=== PATIENT | male | born 1990 | race Asian ===

== ENCOUNTER 2017-07-27 09:43 | Emergency (ER) | payer OTHER | END 2017-07-27 10:28 | disposition home or self-care (01) | LOC: FTE 09:43 | DX: R10.13 Epigastric pain (principal) | CPT/HCPCS: 99282; Z7502 ==

== ENCOUNTER 2017-08-16 05:47 | Day surgery (SDC) | payer OTHER ==
[2017-08-16] MEDS ORDERED: FENTAnyl 50 MCG/ML VIAL (07:49)
[2017-08-16] MEDS ORDERED: MIDAZOLAM 1 MG/ML 2 ML INJ ×2 (07:50)
== END 2017-08-16 10:30 | disposition home or self-care (01) ==
LOC: GIL 05:47
DX: K21.9 Gastro-esophageal reflux disease without esophagitis (principal); K29.60 Other gastritis without bleeding
CPT/HCPCS: 43239; 88305; 88312